=== PATIENT | female | born 1960 | race Caucasian/White ===

== ENCOUNTER 2017-02-05 10:59 | Emergency (ER) | payer SELFPAY ==
[~2017-02-05] VITALS: Ht 165.1 cm; Wt 85.0 kg
[2017-02-05 11:04] VITALS: Ht 165.1 cm; Wt 85.0 kg
[2017-02-05] MEDS ORDERED: morphine 4 MG/ML VIAL IV STA (11:18)
[2017-02-05] MEDS ORDERED: ONDANSETRON 4 MG INJ IV STA (11:18)
[2017-02-05 11:46] LABS: ADD SCAN DIFF NO
[2017-02-05 11:50] LABS: BASOPHILS % 0.3 % (0.0-2.0); EOSINOPHILS % 0.4 % (0.0-7.0); HEMATOCRIT 40.9 % (37.0-47.0); HEMOGLOBIN 13.4 g/dl (12.0-16.0); LYMPHOCYTES # 1.5 10^3/ul (0.8-2.9); LYMPHOCYTES % 19.6 % (15.0-51.0); MEAN CORPUSCULAR HEMOGLOBIN 30.7 pg (29.0-33.0); MEAN CORPUSCULAR HGB CONC 32.8 g/dl (32.0-37.0); MEAN CORPUSCULAR VOLUME 93.8 fl (82.0-101.0); MEAN PLATELET VOLUME 10.9 fl (7.4-10.4); MONOCYTE # 0.3 10^3/ul (0.3-0.9); MONOCYTES % 3.7 % (0.0-11.0); NEUTROPHIL # 5.7 10^3/ul (1.6-7.5); NEUTROPHILS % 75.6 % (39.0-77.0); PLATELET COUNT 212 10^3/UL (140-415); RED BLOOD COUNT 4.36 10^6/ul (4.20-5.40); RED CELL DISTRIBUTION WIDTH 13.2 % (11.5-14.5); WHITE BLOOD COUNT 7.5 10^3/ul (4.8-10.8)
--- NOTE | 2017-02-05 12:06 | RADRPT ---
PROCEDURE: CT head CLINICAL INDICATION: Headaches TECHNIQUE: Contiguous 2.5 mm axial images were obtained from the vertex to the skull base. No int ravenous contrast was administered. The calculated dose length product (DLP) = 630.20 mGy-cm. The CTDlvol = 44.68 mGy. One or more of the following dose reduction techniques were used: Automated e xposure control, adjustment of the mA and or KV according to patient size, or use of iterative recon struction technique. COMPARISON: None FINDINGS: There is no acute intracranial hemorrhage or acute territorial infarct. No mass or mass effect is s een on this noncontrast study. Ventricles and cisterns are normal in size and configuration. Lepe- white matter differentiation is within normal limits. Visualized paranasal sinuses are normally aer ated. Bony calvarium is unremarkable. IMPRESSION: Unremarkable unenhanced CT of the brain RPTAT: HH .Ketan Chun MD, MD Date Time Electronically viewed and signed by .Ketan Chun MD, on 02/05/2017 12:06 .W/
[2017-02-05] MEDS ORDERED: SOD CHLORIDE 0.9% 1,000 ML IV ONE (12:16)
[2017-02-05 12:17] LABS: INR 0.91; PARTIAL THROMBOPLASTIN TIME 24.2 Sec (25.0-35.0); PROTIME 12.2 Sec (12.2-14.2)
[2017-02-05] MEDS ORDERED: ACET500C5 PO (12:33)
[2017-02-05] MEDS ORDERED: ONDA8TAB14 PO (12:33)
--- NOTE | 2017-02-05 12:39 | ERD ---
ER Documentation Chief Complaint Date/Time DATE: 02/05/17 TIME: 12:36 Chief Complaint SEVERE HEADACHE,VOMITING SINCE LAST NIGHT HPI This 56-year-old female complains of headache and vomiting since earlier today. She was walking with her friends. She describes the headache as diffuse. She has some vomiting which is nonbilious nonbloody as well. She denies recent illnesses such as fevers, cough, diarrhea or abdominal pain. Denies any previous history of headache or migraines. She denies photophobia although feels better with her eyes closed. ROS All systems reviewed and are negative except as per history of present illness. Medications Home Meds Active Scripts Ondansetron (Ondansetron Odt) 8 Mg Tab.rapdis, 8 MG PO Q6H Y for NAUSEA AND/OR VOMITING, #6 TAB Prov:SKYLER CROWELL MD 02/05/17 Acetaminophen* (Tylophen*) 500 Mg Capsule, 1 CAP PO Q6H Y for PAIN AND OR ELEVATED TEMP, #15 CAP Prov:SKYLER CROWELL MD 02/05/17 PMhx/Soc Medical and Surgical Hx: pt denies Medical Hx, pt denies Surgical Hx Hx Alcohol Use: No Hx Substance Use: No Hx Tobacco Use: No Physical Exam Vitals Vital Signs Date Time Temp Pulse Resp B/P Pulse Ox O2 Delivery O2 Flow Rate FiO2 02/05/17 11:04 98.1 69 18 132/69 98 Physical Exam Const: [] Alert, limited response to questioning. Head: Atraumatic Eyes: Normal Conjunctiva. Eyes are PERRLA and extraocular movements intact. ENT: Normal External Ears, Nose and Mouth. Neck: Full range of motion..~ No meningismus. Resp: Clear to auscultation bilaterally Cardio: Regular rate and rhythm, no murmurs Abd: Soft, non tender, non distended. Normal bowel sounds Skin: No petechiae or rashes Back: No midline or flank tenderness Ext: No cyanosis, or edema Neur: Awake and alert. 2+ reflexes. No appreciable focal neurologic deficits although does not want to ambulate due to sensation of weakness and headache. Psych: Normal Mood and Affect Result Diagram: 02/05/17 1125 Results 24 hrs Laboratory Tests Test 02/05/17 11:25 White Blood Count 7.510^3/ul Red Blood Count 4.3610^6/ul Hemoglobin 13.4g/dl Hematocrit 40.9% Mean Corpuscular Volume 93.8fl Mean Corpuscular Hemoglobin 30.7pg Mean Corpuscular Hemoglobin Concent 32.8g/dl Red Cell Distribution Width 13.2% Platelet Count 75918^3/UL Mean Platelet Volume 10.9fl Neutrophils % 75.6% Lymphocytes % 19.6% Monocytes % 3.7% Eosinophils % 0.4% Basophils % 0.3% Nucleated Red Blood Cells % 0.0/100WBC Neutrophils # 5.710^3/ul Lymphocytes # 1.510^3/ul Monocytes # 0.310^3/ul Eosinophils # 0.010^3/ul Basophils # 0.010^3/ul Nucleated Red Blood Cells # 0.010^3/ul Prothrombin Time 12.2Sec Prothrombin Time Ratio 1.0 INR International Normalized Ratio 0.91 Activated Partial Thromboplast Time 24.2Sec Current Medications Medications (Trade) Dose Ordered Sig/Hunter Route PRN Reason Start Time Stop Time Status Last Admin Dose Admin Ondansetron HCl (Zofran Inj) 4 mg ONCE STAT IV 02/05/17 11:18 02/05/17 11:20 DC 02/05/17 11:33 Morphine Sulfate 4 mg 4 mg ONCE STAT IV 02/05/17 11:18 02/05/17 11:20 DC 02/05/17 11:34 Sodium Chloride (NS) 1,000 ml @ 0 mls/hr Q0M ONCE IV 02/05/17 12:16 02/05/17 12:18 DC 02/05/17 12:24 Procedures/MDM CT brain read as normal by the radiologist. CBC is normal. Patient was given morphine 4 mg IV and Zofran 4 mg IV. Upon reexamination and presence of family. Further history is revealed that patient has been fasting over the last 2 days for pentecostalism purposes regarding the illness of a family member. She is not eating or drinking anything. Patient was given 1 L normal saline IV. Patient was alert and ambulatory although wanted to sit down. Patient shows no signs or symptoms to suggest significant illness and history suggestS patient having would may be likely somatic complaints and stress response due to family issues. Patient does not appear to have signs or symptoms to suggest neurologic deficit, meningitis, mass -effect. She will be treated with Zofran and Tylenol instructions that she needs to eat something and drink clear fluids at home. Patient should otherwise return for fevers, weakness, new or worsening symptoms. Departure Diagnosis: Primary Impression: Stress and adjustment reaction Additional Impression: Headache Headache type: unspecified Headache chronicity pattern: unspecified pattern Intractability: not intractable Qualified Code: R51 - Nonintractable headache, unspecified chronicity pattern, unspecified headache type Condition: Stable Patient Instructions: Self-Care for Headaches, Stress: Causes and Effects Additional Instructions: Examines normal hoy.POSSIBLEMENTE EFFECTO DE NO COMIENDO Y STRESS. NECESITA COME Y SARMAD LIQUIDO. Cheque otro vez con alexandre doctor primario en el proximo mata or regresa para mas o nueva simptomas. KSYLER CROWELL MD Feb 05, 2017 12:39
[2017-02-05 12:45] VITALS: BP 128/74; PULSE 71; RESP 18
== END 2017-02-05 12:48 | disposition home or self-care (01) ==
LOC: FTE 10:59
DX: F43.25 Adjustment disorder with mixed disturbance of emotions and conduct (principal); R11.10 Vomiting, unspecified; R07.9 Chest pain, unspecified
CPT/HCPCS: 36415; 70450; 85025; 85610; 85730; 96374; 96375; 99285; J2270; J2405; J7030